=== PATIENT | male | born 1950 | race Caucasian/White ===

== ENCOUNTER 2017-09-13 06:37 | Day surgery (SDC) | payer MEDICARE, BC ==
[2017-09-13] MEDS ORDERED: Sodium Chloride 0.9% 10 ML Syringe FLUSH PRN (06:45)
[2017-09-13] MEDS ORDERED: Lactated Ringers 1,000 ML IV SCH (07:45)
[2017-09-13] MEDS ORDERED: Propofol 200 MG/20 ML SDV IV ONE (08:30)
[2017-09-13] MEDS ORDERED: Lidocaine 2% 100 MG/5 ML Syringe IVPUSH ONE (08:30)
[2017-09-13] MEDS ORDERED: Ondansetron 4 MG/2 ML SDV IVPUSH ONE (08:30)
[2017-09-13] MEDS ORDERED: Glycopyrrolate 0.2 MG/ML 2 ML SDV IV ONE (08:30)
[2017-09-13] MEDS ORDERED: Midazolam 1 MG/ML 2 ML SDV IV ONE (08:30)
[2017-09-13] MEDS ORDERED: ePHEDrine 50 MG/ML SDV IV ONE (08:30)
[2017-09-13] MEDS ORDERED: Lactated Ringers 1,000 ML IV ONE (08:30)
--- NOTE | 2017-09-13 09:05 | PCM.HPR ---
H & P Addendum review - H & P Addendum Review Date of Original H & P: 08/27/17 Date Reviewed: 09/13/17 Time Reviewed: 08:15 Patient was Examined: No Changes
--- NOTE | 2017-09-13 09:06 | PCM.OPNOTE ---
- General Post-Op/Procedure Note Date of Surgery/Procedure: 09/13/17 Operative Procedure(s): Colonoscopy with polypectomy Findings: 8 mm Asc Colon Polyp Pre Op Diagnosis: Hx Colon Polyps Post-Op Diagnosis: Same Anesthesia Technique: MAC Primary Surgeon: Fredy MIMSL in mLs: 0 Complications: None Condition: Good
--- NOTE | 2017-09-13 18:59 | OR ---
DATE OF OPERATION: 09/13/2017 SURGEON: Fredy Acosta MD PREOPERATIVE DIAGNOSIS: History of colon polyps. POSTOPERATIVE DIAGNOSES: 1. Ascending colon polyp. 2. Sigmoid diverticulosis. PROCEDURE PERFORMED: Colonoscopy with polypectomy. ANESTHESIA: IV sedation. DESCRIPTION OF PROCEDURE: The patient was brought to the procedure room, where he was placed on his left side and IV sedation administered. Digital rectal exam was performed, which was normal. The colonoscope was inserted and advanced to the level of the cecum without difficulty. Cecal position was confirmed by identifying the appendiceal lumen and ileocecal valve. Prep was good and surfaces were well visualized. Upon withdrawing the scope, there was an 8 mm semi-pedunculated polyp in the proximal ascending colon that was removed with the cautery snare and retrieved in the polyp trap. I thoroughly inspected the entire ascending colon and did not find any other abnormalities. This is where he had a polyp removed last year with severe dysplasia. I did not find any tattoo present. The transverse colon was normal. In the descending colon, at 80 cm, was a purplish spot, possibly an old tattoo, but no abnormalities noted in the area. The sigmoid colon had a few diverticula present. Rectum was normal and retroflexion was normal. Air was removed, and the scope was withdrawn. The patient tolerated the procedure well and returned to recovery in a stable condition. RECOMMENDATIONS: The patient will be contacted with the pathology report when it returns. Assuming this polyp is adenomatous, I feel he should undergo a repeat colonoscopy again in 2 years. /[id number] CHARLIE/SISSY
== END 2017-09-13 10:07 | disposition home or self-care (01) ==
LOC: FB.SDS 06:37
PROVIDERS: ATTEND Surgery
DX: Z12.11 Encounter for screening for malignant neoplasm of colon (principal); D12.2 Benign neoplasm of ascending colon; K57.30 Diverticulosis of large intestine without perforation or abscess without bleeding; Z79.01 Long term (current) use of anticoagulants; Z98.890 Other specified postprocedural states; Z87.19 Personal history of other diseases of the digestive system; Z86.718 Personal history of other venous thrombosis and embolism; Z86.711 Personal history of pulmonary embolism
CPT/HCPCS: 00812; 45385; 88305; J2250; J2405; J2704; J7120; J3490

== ENCOUNTER 2018-11-15 07:05 | Day surgery (SDC) | payer MEDICARE, BC ==
[2018-11-15] MEDS ORDERED: Midazolam 1 MG/ML 2 ML SDV IV ONE (07:06)
[2018-11-15] MEDS ORDERED: Propofol 200 MG/20 ML SDV IV ONE (07:06)
[2018-11-15] MEDS ORDERED: Lactated Ringers 1,000 ML IV SCH (07:30)
--- NOTE | 2018-11-15 09:05 | PCM.HP ---
H&P History of Present Illness - General Date of Service: 11/15/18 Admit Problem/Dx: Admission Diagnosis/Problem Admission Diagnosis/Problem Colonoscopy Source of Information: Patient, Old Records History Limitations: Reports: No Limitations - History of Present Illness Initial Comments - Free Text/Narative: Here for colonoscopy for hx polyps, last one 14 months ago - Related Data Allergies/Adverse Reactions: Allergies Allergy/AdvReac Type Severity Reaction Status Date / Time No Known Allergies Allergy Verified 11/15/18 07:31 Home Medications: Home Meds Warfarin [Coumadin] 5 mg PO ASDIRECTED 09/10/17 [History] Past Medical History HEENT History: Reports: None Cardiovascular History: Reports: Blood Clots/VTE/DVT, Hypertension Respiratory History: Reports: PE Gastrointestinal History: Reports: Colon Polyp SEO ASSISTANT History: Reports: None Neurological History: Reports: None Psychiatric History: Reports: None Endocrine/Metabolic History: Reports: None Hematologic History: Reports: None Immunologic History: Reports: None Oncologic (Cancer) History: Reports: Other (See Below) Other Oncologic History: HX SKIN CA Dermatologic History: Reports: None, Other (See Below) Other Dermatologic History: HX SKIN CANCERS - Past Surgical History GI Surgical History: Reports: Colonoscopy Musculoskeletal Surgical History: Reports: Shoulder Surgery, Other (See Below) Other Musculoskeletal Surgeries/Procedures:: HX KNEE SURGERY Social & Family History - Tobacco Use Smoking Status *Q: Light Tobacco Smoker - Caffeine Use Caffeine Use: Reports: Coffee - Recreational Drug Use Recreational Drug Use: No Drug Use in Last 12 Months: No H&P Review of Systems - Review of Systems: Review Of Systems: ROS reveals no pertinent complaints other than HPI. Exam - Exam Exam: See Below - Vital Signs Vital Signs: Last Vital Signs Temp 207.5 F H 11/15/18 07:34 Pulse 59 L 11/15/18 07:34 Resp 16 11/15/18 07:34 BP 137/76 11/15/18 07:34 Pulse Ox 98 11/15/18 07:34 Weight: 96.6 kg - Exam General: Alert, Oriented Lungs: Clear to Auscultation, Normal Respiratory Effort Cardiovascular: Regular Rate, Regular Rhythm GI/Abdominal Exam: Soft, Non-Tender Problem List Initiated/Reviewed/Updated: Yes Orders Last 24hrs: Active Orders 24 hr Category Date Time Status Patient Status [ADT] Routine ADT 11/15/18 07:30 Ordered Patient to Empty Bladder [RC] ASDIRECTED Care 11/15/18 07:30 Active Verify Patient Consent Obtain [RC] ASDIRECTED Care 11/15/18 07:30 Active Nothing Per Oral Diet [DIET] Diet 11/14/18 Dinner Ordered Lactated Ringers [Ringers, Lactated] 1,000 ml Med 11/15/18 07:30 Active IV ASDIRECTED Peripheral IV Insertion Adult [OM.PC] Routine Oth 11/15/18 07:30 Ordered Resuscitation Status Routine Resus Stat 11/14/18 13:23 Ordered Medication Orders Lactated Ringer's (Ringers, Lactated) 1,000 mls @ 125 mls/hr IV ASDIRECTED [facility] Last Admin: 11/15/18 07:55 Dose: 125 mls/hr Assessment/Plan Comment:: Hx Colon Polyps, ok to proceed with colonoscopy
--- NOTE | 2018-11-15 09:30 | PCM.OPNOTE ---
- General Post-Op/Procedure Note Date of Surgery/Procedure: 11/15/18 Operative Procedure(s): Colonoscopy Findings: Normal Pre Op Diagnosis: Hx Polyps Post-Op Diagnosis: same Anesthesia Technique: MAC Primary Surgeon: Fredy Acosta Anesthesia Provider: Adry Hoffman Complications: None Condition: Good
--- NOTE | 2018-11-15 14:51 | OR ---
DATE OF OPERATION: 11/15/2018 SURGEON: Fredy Acosta MD PREOPERATIVE DIAGNOSES: 1. History of colon polyps. 2. Sigmoid diverticulosis. POSTOPERATIVE DIAGNOSIS: Sigmoid diverticulosis. PROCEDURE: Colonoscopy. ANESTHESIA: IV sedation. PROCEDURE IN DETAIL: The patient was brought to the procedure room, where he was placed on his left side and IV sedation administered. Digital rectal exam was performed, which was normal. Colonoscope was inserted and advanced to the level of the cecum without difficulty. Cecal position was confirmed by identifying the appendiceal lumen and ileocecal valve. Prep was good and surfaces were well visualized. Upon withdrawing the scope, the ascending, transverse, and descending colon were normal in appearance. Sigmoid colon had a few diverticula present. Rectum was normal. Retroflexion was normal. Air was removed and the scope withdrawn. The patient tolerated the procedure well and returned to recovery in stable condition. Recommend surveillance colonoscopy again in 3 years. /[id number] CHARLIE/SISSY
== END 2018-11-15 10:27 | disposition home or self-care (01) ==
LOC: FB.SDS 07:05
PROVIDERS: ATTEND Surgery
DX: Z12.11 Encounter for screening for malignant neoplasm of colon (principal); K57.30 Diverticulosis of large intestine without perforation or abscess without bleeding; Z86.010 Personal history of colon polyps; I10 Essential (primary) hypertension; F17.200 Nicotine dependence, unspecified, uncomplicated; I82.409 Acute embolism and thrombosis of unspecified deep veins of unspecified lower extremity; Z79.01 Long term (current) use of anticoagulants; Z98.890 Other specified postprocedural states
CPT/HCPCS: 00811; G0105; J2250; J2704; J7120